=== PATIENT | female | born 1950 | race Caucasian/White ===

== ENCOUNTER 2016-10-27 13:35 | Emergency (ER) | payer BC ==
[~2016-10-27] VITALS: Ht 162.6 cm; Wt 72.7 kg
[~2016-10-27 13:35] MED LIST: ALBUAER2 INH; AZIT500T26 PO; HYCUDL5 PO; PRED20TA PO
[2016-10-27 13:37] VITALS: TEMP 37; Ht 162.6 cm; Wt 72.7 kg
--- NOTE | 2016-10-27 13:47 | EMERGENCY ROOM VISIT NOTE ---
History Report prepared by Joyce: Patricia Aguilar Under the Supervision of: Dr. Young Alcala D.O. First contact with patient: 13:41 Chief Complaint: RESPIRATORY PROBLEMS Stated Complaint: CHEST COLD, BACK PAIN, HARD TO BREATHE History of Present Illness The patient is a 65 year old female who presents to the Emergency Room with complaints of cough and shortness of breath. The patient states that she's had a dry cough for the last week. She was seen by her primary care physician's office and started on a albuterol inhaler earlier this week. She states his symptoms are somewhat improved but continued through today. She denies having any fever. She denies having any swelling in the legs. She states that she does not have any chest pain other than when she coughs. She states symptoms are worsened with exertion but denies having any orthopnea. The patient has had similar episodes in the past. She states that she does have a history of asthma but also smokes. Source of History: patient Onset: a week Position: other (global) Quality: other (global) Timing: worsening Modifying Factors (Worsening): exertion (denies orthopnea) Associated Symptoms: + chest pain (when she coughs), No fevers Note: The patient denies swelling in her legs. Review of Systems See HPI for pertinent positives & negatives. A total of 10 systems reviewed and were otherwise negative. Past Medical & Surgical Medical Problems: (1) Asthma (2) H/O appendicitis Family History No pertinent family history Social History Smoking Status: Current Every Day Smoker Smokeless Tobacco Use: No Alcohol Use: none Drug Use: none Current/Historical Medications Scheduled Albuterol Hfa (Ventolin Hfa), 2-4 PUFFS INH Q6H Azithromycin (Zithromax), 500 MG PO DAILY Montelukast Sodium (Singulair), 10 MG PO DAILY Prednisone (Prednisone Tab), 40 MG PO DAILY Allergies Coded Allergies: No Known Allergies (Unverified , 10/27/16) Physical Exam Vital Signs Date Time Temp Pulse Resp B/P Pulse Ox O2 Delivery O2 Flow Rate FiO2 10/27/16 16:37 78 18 127/67 95 Room Air 10/27/16 15:14 72 16 128/57 94 Room Air 10/27/16 14:35 92 20 123/72 99 Room Air 10/27/16 14:18 82 10/27/16 13:37 37.0 96 20 131/76 90 Room Air Physical Exam GENERAL: Patient is awake alert in no acute distress patient is resting comfortably and showing no signs of anxiety EYES: The conjunctivae are clear. The pupils are round and reactive. EARS, NOSE, MOUTH AND THROAT: The nose is without any evidence of any deformity. Mucous membranes are moist tongue is midline NECK: The neck is nontender and supple. RESPIRATORY: Mild tachypnea was noted. There are diminished breath sounds noted throughout. Expiratory wheezing was noted all lung baird. CARDIOVASCULAR: Regular rate and rhythm noted there no murmurs rubs or gallops normal S1 normal S2 GASTROINTESTINAL: The abdomen is soft. Bowel sounds are present in all quadrants. Abdomen is nontender MUSCULOSKELETAL/EXTREMITIES: There is no evidence of gross deformity full range of motion is noted in the hips and shoulders SKIN: There is no obvious evidence of any rash. No calf tenderness was noted. NEUROLOGIC: Patient is awake alert and oriented x3. Medical Decision & Procedures ER Provider Diagnostic Interpretation: Radiology results as stated below per my review and radiologist interpretation: SINGLE VIEW CHEST CLINICAL HISTORY: Dyspnea. FINDINGS: An AP, portable, upright chest radiograph is compared to study dated 11/02/2014. The examination is degraded by portable technique and patient rotation. The cardiomediastinal silhouette is unremarkable. There is atherosclerotic calcification of the thoracic aorta. Emphysematous change is suspected and there is chronic interstitial thickening. No airspace consolidation or large pleural effusion is identified. No pneumothorax is seen. The skeletal structures are osteopenic. The bony thorax is grossly intact. IMPRESSION: Suspect obstructive physiology. No acute cardiopulmonary abnormality is seen. Electronically signed by: Jimmy Rodrigues M.D. 10/27/2016 2:12 PM Dictated Date/Time: 10/27/2016 2:09 PM Laboratory Results 10/27/16 13:58 Red Blood Count 4.97, Mean Corpuscular Volume 87.9, Mean Corpuscular Hemoglobin 30.4, Mean Corpuscular Hemoglobin Concent 34.6, Mean Platelet Volume 9.7, Neutrophils (%) (Auto) 80.3, Lymphocytes (%) (Auto) 14.1, Monocytes (%) (Auto) 5.1, Eosinophils (%) (Auto) 0.2, Basophils (%) (Auto) 0.1, Neutrophils # (Auto) 11.55, Lymphocytes # (Auto) 2.03, Monocytes # (Auto) 0.73, Eosinophils # (Auto) 0.03, Basophils # (Auto) 0.02 10/27/16 13:58 Test 10/27/16 13:58 White Blood Count 14.39 K/uL (4.8-10.8) Red Blood Count 4.97 M/uL (4.2-5.4) Hemoglobin 15.1 g/dL (12.0-16.0) Hematocrit 43.7 % (37-47) Mean Corpuscular Volume 87.9 fL (80-100) Mean Corpuscular Hemoglobin 30.4 pg (25-34) Mean Corpuscular Hemoglobin Concent 34.6 g/dl (32-36) Platelet Count 258 K/uL (130-400) Mean Platelet Volume 9.7 fL (7.4-10.4) Neutrophils (%) (Auto) 80.3 % Lymphocytes (%) (Auto) 14.1 % Monocytes (%) (Auto) 5.1 % Eosinophils (%) (Auto) 0.2 % Basophils (%) (Auto) 0.1 % Neutrophils # (Auto) 11.55 K/uL (1.4-6.5) Lymphocytes # (Auto) 2.03 K/uL (1.2-3.4) Monocytes # (Auto) 0.73 K/uL (0.11-0.59) Eosinophils # (Auto) 0.03 K/uL (0-0.5) Basophils # (Auto) 0.02 K/uL (0-0.2) RDW Standard Deviation 40.8 fL (36.4-46.3) RDW Coefficient of Variation 12.7 % (11.5-14.5) Immature Granulocyte % (Auto) 0.2 % Immature Granulocyte # (Auto) 0.03 K/uL (0.00-0.02) Prothrombin Time 11.2 SECONDS (9.0-12.0) Prothromb Time International Ratio 1.0 (0.9-1.1) Activated Partial Thromboplast Time 29.4 SECONDS (21.0-31.0) Partial Thromboplastin Ratio 1.1 Anion Gap 10.0 mmol/L (3-11) Est Creatinine Clear Calc Drug Dose 61.7 ml/min Estimated GFR () 78.3 Estimated GFR (Non- 67.6 BUN/Creatinine Ratio 11.2 (10-20) Calcium Level 9.4 mg/dl (8.5-10.1) Total Bilirubin 0.7 mg/dl (0.2-1) Aspartate Amino Transf (AST/SGOT) 12 U/L (15-37) Alanine Aminotransferase (ALT/SGPT) 12 U/L (12-78) Alkaline Phosphatase 115 U/L (45-117) Troponin I < 0.015 ng/ml (0-0.045) Total Protein 7.3 gm/dl (6.4-8.2) Albumin 4.0 gm/dl (3.4-5.0) Globulin 3.3 gm/dl (2.5-4.0) Albumin/Globulin Ratio 1.2 (0.9-2) Laboratory results per my review. Medications Administered Medications (Trade) Dose Ordered Sig/Serenity Route Start Time Stop Time Status Last Admin Dose Admin Methylprednisolone Sodium Succinate 125 mg 125 mg NOW STAT IV 10/27/16 13:48 10/27/16 13:49 DC 10/27/16 14:07 125 MG Sodium Chloride (Nss 1000ml) 1,000 ml @ 999 mls/hr Q1H1M STAT IV 10/27/16 13:48 10/27/16 14:48 DC 10/27/16 14:07 999 MLS/HR Albuterol/ Ipratropium (Duoneb) 3 ml NOW STAT INH 10/27/16 13:48 10/27/16 13:49 DC 10/27/16 14:07 3 ML Albuterol/ Ipratropium (Duoneb) 3 ml NOW STAT INH 10/27/16 14:51 10/27/16 14:52 DC 10/27/16 15:13 3 ML Azithromycin (Zithromax Tab) 500 mg NOW STAT PO 10/27/16 14:51 10/27/16 14:52 DC 10/27/16 15:12 500 MG ECG Indication: SOB/dyspnea Rate (beats per minute): 85 Rhythm: sinus rhythm Findings: nonspecific-ST abn, no ectopy Comparison ECG Date: no prior available ED Course 1340: The patient was evaluated in room C3. A complete history and physical examination were performed. 1348: Ordered Duoneb 3 ml INH, NSS 1000 ml @ 999 mls/hr IV, Solu-Medrol IV 125 mg IV. 1449: Upon revaluation, the patient is still wheezing. 1451: Ordered Zithromax Tab 500 mg PO, Duoneb 3 ml INH. 1635: Upon reevaluation, the patient is resting comfortably. I discussed the results and treatment plan with her. The patient verbalized agreement of the treatment plan. She was discharged home. Medical Decision Triage Nursing notes reviewed. Additional history obtained from the family. The patient's history was concerning for respiratory difficulties. Differential diagnosis: Etiologies such as infections, reactive airway disease, pneumonia, pneumothorax , COPD, CHF, cardiac ischemia, pulmonary embolism, musculoskeletal, gastrointestinal, as well as others were entertained. Medication Reconciliation: I attest that I have personally reviewed the patient' s current medications list. Blood Pressure Screening: Patient was found to have normal blood pressure on screening and does not require a follow-up. The patient is a 65-year-old female who presented to emergency department for an evaluation of cough. The patient was seen by her primary care physician earlier this week. The patient does have a history of asthma but had continued symptoms despite bronchodilator therapy. The patient was treated with bronchodilator therapy IV steroids IV fluids as well as antibiotics in the emergency department. She was reevaluated multiple times. She was feeling much better on subsequent reevaluation. Her oxygen saturation initially was low but acceptable. On subsequent reevaluation this improved. The patient was encouraged to rest and avoid any strenuous activities. She was encouraged to continue all medications as prescribed and follow-up with her family doctor this week. She was also encouraged to return to the emergency department immediately if symptoms change worsen or the need arises. Impression Primary Impression: Bronchitis Additional Impression: Shortness of breath Scribe Attestation The scribe's documentation has been prepared under my direction and personally reviewed by me in its entirety. I confirm that the note above accurately reflects all work, treatment, procedures, and medical decision making performed by me. Departure Information Dispostion Home / Self-Care Prescriptions Prednisone (Prednisone Tab) 20 Mg Tab 40 MG PO DAILY, #10 TAB Prov: Young Alcala, DO 10/27/16 Azithromycin (Zithromax) 500 Mg Tab 500 MG PO DAILY, #4 TAB Start on 10/28 Prov: Young Alcala, DO 10/27/16 Referrals No Doctor, Assigned (PCP) Forms HOME CARE DOCUMENTATION FORM, IMPORTANT VISIT INFORMATION, WORK / SCHOOL INSTRUCTIONS Patient Instructions My [facility] [place] [employer] Additional Instructions Rest and avoid any strenuous activity. Continue all medications as prescribed. Follow-up with your family doctor soon as possible. Return to the emergency department immediately if symptoms change worsen or the need arises. Problem Qualifiers
[2016-10-27] MEDS ORDERED: ALBUT/IPRATROP 3MG/0.5MG NEB 3 ML VIAL INH STA ×2 (13:48→14:51)
[2016-10-27] MEDS ORDERED: SODIUM CHLORIDE 0.9% 1000ML 1,000 ML IV STA (13:48)
[2016-10-27] MEDS ORDERED: METHYLPREDNISOLONE 125 MG VIAL IV STA (13:48)
[2016-10-27 14:04] LABS: BASO % 0.1 %; BASO ABS # 0.02 K/uL (0-0.2); COMPLETE YES; EOS % 0.2 %; HEMATOCRIT 43.7 % (37-47); IG% 0.2 %; LYMPH % 14.1 %; LYMPH ABS # 2.03 K/uL (1.2-3.4); MEAN CELL VOLUME 87.9 fL (80-100); MEAN CORPUSCULAR HEMOGLOBIN 30.4 pg (25-34); MEAN CORPUSCULAR HGB CONC 34.6 g/dl (32-36); MEAN PLATELET VOLUME 9.7 fL (7.4-10.4); MONO % 5.1 %; NEUT % 80.3 %; PLATELET COUNT 258 K/uL (130-400); RED BLOOD COUNT 4.97 M/uL (4.2-5.4); WHITE BLOOD COUNT 14.39 K/uL (4.8-10.8)
--- NOTE | 2016-10-27 14:13 | DIAGNOSTIC IMAGING REPORT ---
SINGLE VIEW CHEST CLINICAL HISTORY: Dyspnea. FINDINGS: An AP, portable, upright chest radiograph is compared to study dated 11/02/2014. The examination is degraded by portable technique and patient rotation. The cardiomediastinal silhouette is unremarkable. There is atherosclerotic calcification of the thoracic aorta. Emphysematous change is suspected and there is chronic interstitial thickening. No airspace consolidation or large pleural effusion is identified. No pneumothorax is seen. The skeletal structures are osteopenic. The bony thorax is grossly intact. IMPRESSION: Suspect obstructive physiology. No acute cardiopulmonary abnormality is seen. Electronically signed by: Jimmy Rodrigues M.D. 10/27/2016 2:12 PM Dictated Date/Time: 10/27/2016 2:09 PM
[2016-10-27 14:19] LABS: PARTIAL THROMBOPLASTIN RATIO 1.1; PROTHROMBIN TIME (PATIENT) 11.2 SECONDS (9.0-12.0)
[2016-10-27 14:22] LABS: ALT/SGPT 12 U/L (12-78); AST/SGOT 12 U/L (15-37); BLOOD UREA NITROGEN 10 mg/dl (7-18); BUN/CREATININE RATIO 11.2 (10-20); CALCIUM 9.4 mg/dl (8.5-10.1); CARBON DIOXIDE 27 mmol/L (21-32); CHLORIDE 105 mmol/L (98-107); GLUCOSE 101 mg/dl (70-99); POTASSIUM 3.8 mmol/L (3.5-5.1); SODIUM 142 mmol/L (136-145)
[2016-10-27 14:27] LABS: ALB/GLOB RATIO 1.2 (0.9-2); ALKALINE PHOSPHATASE 115 U/L (45-117)
[2016-10-27] MEDS ORDERED: AZITHROMYCIN 250 MG TAB PO STA (14:51)
[2016-10-27] MEDS ORDERED: VNTHFA/IN INH (14:56)
[2016-10-27] MEDS ORDERED: MONT1TAB3 PO (14:56)
[2016-10-27] MEDS ORDERED: PRED20TA2 PO (16:34)
[2016-10-27] MEDS ORDERED: AZIT500T26 PO (16:34)
[2016-10-27 16:37] VITALS: BP 127/67; PULSE 78; O2SAT 95
== END 2016-10-27 16:45 | disposition home or self-care (01) ==
LOC: C.EDB 13:38 → C.EDC 16:45
DX: J40 Bronchitis, not specified as acute or chronic (principal); J45.909 Unspecified asthma, uncomplicated; F17.200 Nicotine dependence, unspecified, uncomplicated; Z79.899 Other long term (current) drug therapy